=== PATIENT | female | born 1975 | race Caucasian/White ===

== ENCOUNTER 2018-03-12 10:22 | Day surgery (SDC) | payer OTHER, SELFPAY ==
[2018-03-04 07:47] VITALS: BMI 51.3
[2018-03-12 11:00] VITALS: BMI 52.3
[2018-03-12 11:17] VITALS: BP 128/87; PULSE 76; RESP 15; TEMP 36.6; O2SAT 95
[2018-03-12] MEDS: LACTATED RINGERS 1,000 ML 42 ML IV ×2 (11:19→13:55)
--- NOTE | 2018-03-12 12:42 | PM.HP.1 ---
History of Present Illness Date Patient Seen: 03/12/18 Time Patient Seen: 12:43 Chief complaint: left inquinal hernia repair [id number] Narrative: Stan is a very pleasant woman with a history of a left inguinal hernia that is painful and is enlarging. It has reached the point now where it is limiting her activities. It causes her nearly constant pain. She would very much like to have repaired. Patient History Medical History Back pain (Acute) Depression (Acute) Hypertension (Acute) IUD (intrauterine device) in place (Acute) Left inguinal hernia (Acute) Surgical History History of (Acute) History of carpal tunnel release (Acute) Family & Social History Family History: Reviewed 03/12/18 by Keli Bhatia MD Social History: household members spouse Tobacco & Substance use: Smoking Status Unknown if ever smoked Meds Home Medications Medication Instructions Recorded Confirmed Type citalopram 40 mg PO DAILY 03/04/18 03/12/18 History telmisartan [Micardis] 80 mg PO DAILY 03/04/18 03/12/18 History minocycline 100 mg PO BID 03/12/18 03/12/18 History Allergies Allergy/AdvReac Type Severity Reaction Status Date / Time No Known Drug Allergies Allergy Verified 03/12/18 10:59 Review of Systems Review of Systems All systems reviewed & are unremarkable except as noted in HPI and below Exam Vital Signs (past 8 hours): - 03/12/18 11:17 Temperature 97.8 F Pulse Rate 76 Respiratory Rate 15 Blood Pressure 128/87 H Pulse Oximetry 95 Oxygen Delivery Method Room Air Narrative Exam Narrative: A very pleasant lady in no obvious distress. She is clinically morbidly obese with a BMI of 52.3. HEENT: Normocephalic and atraumatic, pupils equal round reactive to light accommodation with anicteric sclera Lungs: Clear bilaterally Heart: Regular rate and rhythm Abdomen: Soft, tender to palpation left lower quadrant. With the patient in the supine position a hernia can be appreciated just to the left lateral side of her existing Pfannenstiel incision. It is difficult to determine if it is a true inguinal hernia or hernia related to the Pfannenstiel incision. It reduces with gentle pressure. Extremities: Warm and well perfused. Assessment & Plan (1) Morbid obesity: Current visit: Yes Status: Acute Plan: Assessment/Plan Narrative: Wonderful 43-year-old lady with a painful troublesome left inguinal hernia. We have discussed the risks and benefits of hernia repair the patient expressed a desire to have procedure.
[2018-03-12] MEDS: CEFAZOLIN 2 GM/100 ML FROZ.PIGGY IV (12:45)
--- NOTE | 2018-03-12 13:10 | SUR.OPER ---
Supine on padded OR bed, head on pillow, arms secured on padded arm boards at <90 degrees abduction, legs uncrossed, safety belt at thigh, tape over blanket over lower legs.
[2018-03-12] MEDS: CEFAZOLIN 1 GM VIAL IV (13:21)
[2018-03-12] MEDS: BUPIVACAINE 0.5% (PF) 30 ML VIAL INJ (13:52)
[2018-03-12] MEDS: LIDOCAINE 1% W/EPI INJ 20 ML INJ (13:53)
--- NOTE | 2018-03-12 14:00 | PM.OP.1 ---
Operative Date/Time/Diagnoses Date of procedure: 03/12/18 Time of procedure: 14:01 Pre-op diagnosis: Left Inguinal Hernia Post-op diagnosis: same Procedure & Clinicians Procedure: Left inguinal hernia repair Same procedure as scheduled: Yes Indications: Painful and troublesome left inguinal hernia Surgeon: Keli Bhatia Click Yes if Unassisted: Yes Anesthesia Type: General ([place]) and Local Operative Notes Findings: Moderate size indirect left inguinal hernia. The remainder of the floor is in good repair Closure Type: primary Specimen(s): none sent Implants & Drains: One large Pro Loop mesh plug and patch implant Estimated Blood Loss (mL): 10 Procedure in detail: AAfter obtaining informed consent, the patient was brought to the operating room and placed in the supine position on the operating table. Following successful induction of general endotracheal anesthesia, appropriate padding of all bony prominences, and placement of appropriate monitors, the abdomen and left groin were prepped and draped in a standard surgical fashion. A timeout was held per protocol. We began the procedure on the left side by creating an ilioinguinal nerve block. This was done by infiltrating a mixture of local anesthetics just medial to the anterior superior iliac spine on the left. We continued by creating an area in the left lower quadrant for an incision. A field block was created in this position. The incision was re-created and carried down through the skin and subcutaneous tissue to reveal the fascia of the external oblique aponeurosis. The fascia was opened in the direction of its fibers revealing the contents of the inguinal canal. It was easily identified and encircled with a Lars drain. Expiration of the inguinal canal revealed a moderate size direct, as well as an indirect, left internal hernia. We elected to divide the round ligament. This was done between clamps and it was tied with Vicryl suture. We elected to repair the defect with a large Pro Loop plug and patch implant. The plug was deployed into the internal inguinal ring and sewn medially to the transversalis fascia to help hold it in position. The patch was then sewn medially to the pubic tubercle and laterally the edges were tucked under the external oblique aponeurosis to provide a 2nd layer of stability. The wound was checked for hemostasis and irrigated copiously with warm saline solution. The external oblique aponeurosis was closed with a running locking Vicryl suture, Amita's fascia was closed, and Monocryl sutures were placed in the skin. All sponge, needle, and instrument counts were correct at the conclusion of the case. The patient was allowed to awaken from anesthesia without difficulty and taken to the post anesthesia care unit in good condition. Complications: none Condition: stable Disposition: PACU Plan for aftercare: 1. Discharge to home 2. Follow up with me in 2 weeks
[2018-03-12 14:04] VITALS: BP 124/70; PULSE 90; RESP 22; TEMP 37; O2SAT 90
[2018-03-12 14:10] VITALS: BP 127/75; PULSE 90; RESP 15; O2SAT 98
[2018-03-12 14:20] VITALS: BP 112/65; PULSE 80; RESP 12; O2SAT 99
[2018-03-12 14:25] VITALS: BP 113/72; PULSE 80; RESP 12; O2SAT 97
[2018-03-12 14:38] VITALS: BP 117/64; PULSE 76; RESP 15; TEMP 36.2; O2SAT 95
--- NOTE | 2018-03-12 15:22 | SUR.PHASEII ---
[id number] In wheelchair, Patient and spouse deny any further questions or concerns. No drainage at surgical site prior to IV being DC'd. Ice bag with patient.
== END 2018-03-12 15:10 | disposition home or self-care (01) ==
PROVIDERS: PCP Registered Nurse Diabetes Educator; Visit Provider Surgery
PROC: (CPT 49505; principal; 2018-03-12 11:15)
DX: K40.90 Unilateral inguinal hernia, without obstruction or gangrene, not specified as recurrent (principal); I10 Essential (primary) hypertension
CPT/HCPCS: 49505; C1781; J0690; J2405; J2704; J3010

== ENCOUNTER 2019-06-02 18:34 | Emergency (ER) | payer OTHER, SELFPAY ==
[2019-06-02 19:21] VITALS: BP 148/73; PULSE 96; RESP 18; TEMP 37.3; O2SAT 98
--- NOTE | 2019-06-02 19:22 | DI.RAD.S_ITS ---
PROCEDURE: XR WRIST LT MIN 3V INDICATIONS: fall, elbow and wrist pain TECHNIQUE: 3 views of the wrist were acquired. COMPARISON: None. FINDINGS: Bones: No fractures or dislocations. No suspicious bony lesions. Soft tissues: No suspicious soft tissue calcifications. IMPRESSION: 1. No fracture or dislocation. A Dictated by: Sourav Lilly M.D. on 06/02/2019 at 20:29 Approved by: Sourav Lilly M.D. on 06/02/2019 at 20:30
--- NOTE | 2019-06-02 19:22 | DI.RAD.S_ITS ---
PROCEDURE: XR ELBOW LT MIN 3V INDICATIONS: fall, elbow and wrist pain TECHNIQUE: 3 views of the elbow were acquired. COMPARISON: [facility], [place], XR WRIST LT MIN 3V, 06/02/2019, 19:33. FINDINGS: Bones: There is a minimally impacted fracture of the radial neck. No dislocations. Soft tissues: There is a small elbow joint effusion. No suspicious soft tissue calcifications. IMPRESSION: 1. Minimally impacted radial neck fracture. Dictated by: Sourav Lilly M.D. on 06/02/2019 at 20:26 Approved by: Sourav Lilly M.D. on 06/02/2019 at 20:29
--- NOTE | 2019-06-02 20:46 | ED.UPPEXIN ---
HPI - Extremity Injury (Upper) General Chief Complaint: Extremity Injury, Upper Stated Complaint: LEFT ARM INJURY FALL Time Seen by Provider: 06/02/19 20:32 Source: patient Mode of arrival: Ambulatory Limitations: no limitations History of Present Illness HPI narrative: The patient arrived home from work about 3 hours ago. She was taking her dogs into the house, she tripped over a door stop and fell into her laundry room. She landed on her left side. There was no head or neck injury. She has no chest pain or dyspnea. She has left humerus, left elbow and left wrist pain. She has mild left leg pain. She is primarily pain with motion of the elbow and wrist, but no pain with motion of the leg. She is right-hand dominant. There are no contusions, abrasions or deformity. She has no other injuries, no other complaints. Related Data Home Medications Medication Instructions Recorded Confirmed citalopram 40 mg PO DAILY 03/04/18 04/17/18 telmisartan [Micardis] 80 mg PO DAILY 03/04/18 04/17/18 minocycline 100 mg PO BID 03/12/18 03/25/18 Previous Rx's Medication Instructions Recorded ondansetron [Zofran ODT] 4 mg PO QID PRN #20 tab MDD 4 03/12/18 oxycodone-acetaminophen 5 mg-325 1 tab PO Q6H PRN #30 tab MDD 4 03/17/18 mg tablet fluconazole 200 mg tablet 200 mg PO Q24H #7 tab MDD 1 04/03/18 tramadol 50 mg PO Q6-8H PRN #20 tab 06/02/19 Allergies Allergy/AdvReac Type Severity Reaction Status Date / Time No Known Drug Allergies Allergy Verified 03/12/18 10:59 Review of Systems Constitutional Constitutional: Denies chills, Denies lethargy and Denies weakness ENT Ears, Nose, Mouth, and Throat: Denies neck pain Comments: No trauma. Cardiovascular Cardiovascular: Denies chest pain and Denies dyspnea Respiratory Respiratory: Denies cough and Denies dyspnea Gastrointestinal Gastrointestinal: Denies abdominal pain and Denies nausea Musculoskeletal Musculoskeletal: Denies back pain, Denies neck pain and Denies numbness Comments: Left arm and left leg pain. Integumentary/Breasts Skin/Breast: Denies pruritus, Denies erythema, Denies rash and Denies wounds Neurologic Neurologic: Denies confusion, Denies numbness and Denies weakness Psychiatric Psychiatric: Denies anxiety, Denies confusion and Denies depression [facility] Medical History Back pain (Acute) Depression (Acute) Hypertension (Acute) IUD (intrauterine device) in place (Acute) Left inguinal hernia (Acute) Surgical History History of (Acute) History of carpal tunnel release (Acute) Social History household members: spouse Smoking Status: Never smoker Social History household members: spouse Smoking Status: Never smoker Exam Initial Vital Signs Initial Vital Signs: Vital Signs Temperature 99.2 F 06/02/19 19:21 Pulse Rate 96 H 06/02/19 19:21 Respiratory Rate 18 06/02/19 19:21 Blood Pressure 148/73 H 06/02/19 19:21 Pulse Oximetry 98 06/02/19 19:21 Const General: cooperative and well developed Nutritional Appearance: well nourished Orientation: alert, awake, oriented x3 and not confused HENNC Head: normal to inspection, normocephalic and atraumatic Neck Neck: supple and No tender Chest Chest: normal inspection of the chest and No crepitus Resp Effort & Inspection: normal respiratory effort and able to speak in complete sentences Auscultation: clear to auscultation bilaterally, no rales, no rhonchi and no wheezes Cardio Rate: regular rate Rhythm: regular rhythm Heart Sounds: no click, no gallops, no murmurs and no rubs Pulses: normal peripheral pulses Back/Spine/Pelvis Back: normal to inspection and No back tenderness Skin General: no rashes or lesions noted Neuro General: alert, oriented x3, gait normal and no focal motor deficits Speech: speech normal Extrem Other: Left shoulder and left clavicle nontender. Humerus is nontender. She has tenderness to left lateral elbow with decreased flexion and decreased pronation. There is no palpable deformity. Her forearm is nontender. She has dorsal tenderness of the left wrist, there is no snuffbox tenderness. There is no deformity. The left radial pulse is intact. The left hand is normal, atraumatic. There is normal flexion extension all digits. The left hand is neurovascularly intact. The left leg shows full range of motion without deformity or tenderness. Psych Appearance: well kempt Mental Status: mental status grossly normal Attitude: cooperative Thought Content: normal and suicidality Judgment: judgment good Procedures Orthopedic Splinting/Casting Injury #1: Side: left Upper Extremity Injury Location: elbow Upper Extremity Immobilizer: sling/shoulder immobilizer Placed by: Nursing Additional Comments: The left hand is neurovascularly intact after being placed in the sling. Course Orders Ordered: ED Orders 06/02/19 19:22 XR elbow LT min 3V Stat XR wrist LT min 3V Stat Discontinued Medications Tramadol HCl (Ultram 50mg Prepack) 1 bottle MISC SEEINSTR ONE Stop: 06/02/19 20:45 Last Admin: 06/02/19 20:55 Dose: 1 bottle Documented by: CLAUDETTE Vital Signs Vital signs: Vital Signs - 8 hr 06/02/19 19:21 Temperature 99.2 F Pulse Rate 96 H Respiratory Rate 18 Blood Pressure 148/73 H Pulse Oximetry 98 MDM - Extremity Injury (Upper) Imaging Data Left elbow x-ray:: Radiologist's impression: [address] [address] XRay Report Signed Patient: Berta Mcfadden#: [id number] : 1975Acct:[id number] Age/Sex: 44 / FDate of Service: 06/02/19 Loc: ED Accession Number: [id number] Procedure: XR elbow LT min 3V Ordering Provider: Floyd Mendoza MD PROCEDURE: XR ELBOW LT MIN 3V INDICATIONS: fall, elbow and wrist pain TECHNIQUE: 3 views of the elbow were acquired. COMPARISON: [facility], , XR WRIST LT MIN 3V, 06/02/2019, 19:33. FINDINGS: Bones: There is a minimally impacted fracture of the radial neck. No dislocations. Soft tissues: There is a small elbow joint effusion. No suspicious soft tissue calcifications. IMPRESSION: 1. Minimally impacted radial neck fracture. Dictated by: Sourav Lilly M.D. on 06/02/2019 at 20:26 Approved by: Sourav Lilly M.D. on 06/02/2019 at 20:29 Left wrist x-ray:: Radiologist's impression: [address] [address] XRay Report Signed Patient: Berta Mcfadden#: [id number] : 1975Acct:[id number] Age/Sex: 44 / FDate of Service: 06/02/19 Loc: ED Accession Number: [id number] Procedure: XR wrist LT min 3V Ordering Provider: Floyd Mendoza MD PROCEDURE: XR WRIST LT MIN 3V INDICATIONS: fall, elbow and wrist pain TECHNIQUE: 3 views of the wrist were acquired. COMPARISON: None. FINDINGS: Bones: No fractures or dislocations. No suspicious bony lesions. Soft tissues: No suspicious soft tissue calcifications. IMPRESSION: 1. No fracture or dislocation. A Dictated by: Sourav Lilly M.D. on 06/02/2019 at 20:29 Approved by: Sourav Lilly M.D. on 06/02/2019 at 20:30 Discharge Plan Departure Patient Disposition: Home Clinical Impression: Closed fracture of head of left radius Qualifiers: Encounter type: initial encounter Fracture alignment: nondisplaced Qualified Code(s): S52.125A - Nondisplaced fracture of head of left radius, initial encounter for closed fracture Instructions: DI for Distal Radius Fracture Activity Restrictions/Additional Instructions: Take Tylenol or Advil as needed for pain. Tramadol every 6 hours as needed added pain control. Use a sling as needed. You may wean from the sling slowly, as tolerated. Contact your primary care doctor at the [facility], you will need follow-up with Orthopedics. Return here as needed. Prescriptions: New tramadol 50 mg tablet 50 mg PO Q6-8H PRN (Reason: pain) Qty: 20 RF: 0 No Action oxycodone-acetaminophen 5-325 mg tablet 1 tab PO Q6H MDD 4 PRN (Reason: pain) Qty: 30 RF: 0 fluconazole [Diflucan] 200 mg tablet 200 mg PO Q24H MDD 1 Qty: 7 RF: 0 citalopram 40 mg Tablet 40 mg PO DAILY RF: 0 telmisartan [Micardis] 80 mg Tablet 80 mg PO DAILY RF: 0 minocycline 100 mg Capsule 100 mg PO BID RF: 0 ondansetron [Zofran ODT] 4 mg tablet,disintegrating 4 mg PO QID MDD 4 PRN (Reason: nausea and vomiting) Qty: 20 RF: 0 Referrals: Esau Small CNP [Primary Care Provider] -
[2019-06-02] MEDS: TRAMADOL 50 MG PREPACK 1 BOTTLE MISC (20:55)
[2019-06-02 21:11] VITALS: BP 130/85; PULSE 77; RESP 20
== END 2019-06-02 21:11 | disposition home or self-care (01) ==
PROVIDERS: Emergency Provider Emergency Medicine; PCP Registered Nurse Diabetes Educator
DX: S52.125A Nondisplaced fracture of head of left radius, initial encounter for closed fracture (principal); M25.522 Pain in left elbow; M25.532 Pain in left wrist; W19.XXXA Unspecified fall, initial encounter
CPT/HCPCS: 73080; 73110; 99282; 99283

== ENCOUNTER → 2021-09-03 16:30 | Outpatient (CLI) | payer OTHER, SELFPAY | PROVIDERS: PCP Registered Nurse Diabetes Educator; Referring Provider Physician Assistant; Visit Provider Physician Assistant | DX: N34.3 Urethral syndrome, unspecified (principal) | CPT/HCPCS: 87086 ==

== ENCOUNTER 2022-11-21 13:29 | Emergency (ER) | payer OTHER, SELFPAY ==
[2022-11-21 13:49] VITALS: BP 117/77; PULSE 80; RESP 22; TEMP 37; O2SAT 98; BMI 39.6
--- NOTE | 2022-11-21 13:59 | DI.RAD.S_ITS ---
PROCEDURE: XR CHEST 2V INDICATIONS: cough x 3 days, SHOB TECHNIQUE: 2 views of the chest were acquired. COMPARISON: None. FINDINGS: Surgical changes and devices: None. Lungs and pleura: Lungs are clear. No pleural effusions or pneumothorax. Mediastinum: Mediastinal contours are normal. Heart size is normal. Bones and chest wall: No suspicious bony abnormalities. Soft tissues appear unremarkable. IMPRESSION: No acute cardiopulmonary pathology. Dictated by: Hector Niño M.D. on 11/21/2022 at 13:22 Approved by: Hector Niño M.D. on 11/21/2022 at 13:23
--- NOTE | 2022-11-21 14:02 | ED.URI ---
HPI - URI/Sore Throat <Gaby yN PA-C - Last Filed: 11/21/22 16:35> General Chief Complaint: Upper Respiratory Symptoms Stated Complaint: sent by [facility] DC for breathing treatments Time Seen by Provider: 11/21/22 13:57 History of Present Illness HPI Narrative: 47-year-old female with history of obesity, presents with concern for persistent cough for 12 days. She states she was seen at [facility] today they tested her for COVID and flu but do not have results yet they sent her here for breathing treatment and further evaluation. 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 She states that she has not really been feeling any worse she just seems like she is not getting better she said in the beginning of her course she did have some fevers and chills but that was 12 days ago most of her symptoms has resolved except for the persistent bothersome cough which is sometimes so bad that it makes her vomit. She has tried Mucinex and Tessalon as well as taken a course of amoxicillin and a steroid course. She feels none of these have really helped. She states she feels congested up high in her chest and moving around and doing activities tends to make her cough a lot. Related Data Home Medications Medication Instructions Recorded Confirmed citalopram 40 mg tablet 40 mg PO DAILY 03/04/18 09/03/21 telmisartan 80 mg tablet (Micardis) 80 mg PO DAILY 03/04/18 09/03/21 minocycline 100 mg capsule 100 mg PO BID 03/12/18 09/03/21 Previous Rx's Medication Instructions Recorded ondansetron 4 mg disintegrating 4 mg PO QID PRN nausea and 03/12/18 tablet (Zofran ODT) vomiting #20 tabs oxycodone-acetaminophen 5 mg-325 1 tab PO Q6H PRN pain #30 tabs 03/17/18 mg tablet fluconazole 200 mg tablet 200 mg PO Q24H candidiasis #7 tabs 04/03/18 (Diflucan) tramadol 50 mg tablet 50 mg PO Q6-8H PRN pain #20 tabs 06/02/19 meclizine 12.5 mg tablet See Rx Instructions PO TID PRN 09/03/21 dizziness #10 tabs albuterol sulfate 90 mcg/actuation 2 puff inhalation Q6H PRN 11/21/22 aerosol inhaler shortness of breath or wheezing 2 weeks #6.7 grams benzonatate 100 mg capsule 100 mg PO TID PRN cough #21 caps 11/21/22 codeine 7.5 mg-guaifenesin 225 5 ml PO Q6H PRN cough and 11/21/22 mg/5 mL oral liquid congestion 7 days #473 mL Allergies Allergy/AdvReac Type Severity Reaction Status Date / Time No Known Drug Allergies Allergy Verified 11/21/22 13:55 Patient History <Gaby Ny PA-C - Last Filed: 11/21/22 16:35> Medical History (Updated 11/21/22 @ 16:25 by Gaby Ny PA-C) Back pain Depression Hypertension IUD (intrauterine device) in place Left inguinal hernia Surgical History History of History of carpal tunnel release Social History household members: spouse Smoking Status: Never smoker Smoking Status: Never smoker alcohol intake frequency: 0-2 drinks per day Substance Use Type: does not use Exam <Gaby Ny PA-C - Last Filed: 11/21/22 16:35> Narrative Exam Narrative: GENERAL: 47 year old patient appears stated age. Well-developed patient, in mild distress. HEAD: Atraumatic. Normocephalic. EYES: Pupils equal round and reactive. Extraocular motions intact. No scleral icterus. No injection or drainage. ENT: Nose without bleeding, purulent drainage. Airway patent. NECK: Trachea midline. Non tender CARDIOVASCULAR: Regular rate and rhythm without murmurs, gallops, or rubs. RESPIRATORY: Bilateral expiratory wheezing all joe, Breath sounds equal bilaterally. No rales, or rhonchi. GASTROINTESTINAL: Abdomen soft, non-tender, nondistended. EXTREMITIES: No edema or joint tenderness. BACK: Nontender without deformity or crepitance. No flank tenderness. NEURO: AOx3. SKIN: No rash or erythema of visible areas Initial Vital Signs Initial Vital Signs: Vital Signs Temperature 98.6 F 11/21/22 13:49 Pulse Rate 80 11/21/22 13:49 Respiratory Rate 22 11/21/22 13:49 Blood Pressure 117/77 11/21/22 13:49 Pulse Oximetry 98 11/21/22 13:49 Oxygen Delivery Method Room Air 11/21/22 13:49 <Nabil Medrano DO - Last Filed: 11/21/22 17:34> Initial Vital Signs Initial Vital Signs: Vital Signs Temperature 98.6 F 11/21/22 13:49 Pulse Rate 80 11/21/22 13:49 Respiratory Rate 22 11/21/22 13:49 Blood Pressure 117/77 11/21/22 13:49 Pulse Oximetry 98 11/21/22 13:49 Oxygen Delivery Method Room Air 11/21/22 13:49 Course <Gaby Ny PA-C - Last Filed: 11/21/22 16:35> Course Course Narrative: RT provided the patient with a DuoNeb treatment and noted she had significant improvement in her wheezing and patient felt better. Orders Ordered: ED Orders 11/21/22 13:59 CXR [XR chest 2V] Stat RT Consult Eval and Treat NOW 11/21/22 15:10 Respiratory Panel (Film Array) Stat Discontinued Medications Albuterol (Albuterol 2.5 Mg/3 Ml Neb (Adult)) 2.5 mg INH NOW ONE Stop: 11/21/22 15:21 Albuterol (Albuterol 2.5 Mg/3 Ml Neb (Adult)) 2.5 mg INH NOW ONE Stop: 11/21/22 15:24 Last Admin: 11/21/22 15:31 Dose: 2.5 mg Documented By: STEVAN Albuterol/Ipratropium (Albuterol/Ipratropium 3 Ml Ampul) 3 ml INH NOW ONE Stop: 11/21/22 14:00 Ipratropium Alexander (Ipratropium 0.5 Mg/2.5 Ml Neb) 0.5 mg INH NOW ONE Stop: 11/21/22 15:21 Ipratropium Alexander (Ipratropium 0.5 Mg/2.5 Ml Neb) 0.5 mg INH NOW ONE Stop: 11/21/22 15:24 Last Admin: 11/21/22 15:30 Dose: 0.5 mg Documented By: STEVAN Vital Signs Vital signs: Vital Signs - 8 hr 11/21/22 13:49 11/21/22 16:37 Temperature 98.6 F Pulse Rate 80 85 Respiratory Rate 22 18 Blood Pressure 117/77 120/75 Pulse Oximetry 98 98 Oxygen Delivery Method Room Air Room Air <Nabil Medrano DO - Last Filed: 11/21/22 17:34> Orders Ordered: ED Orders 11/21/22 13:59 CXR [XR chest 2V] Stat RT Consult Eval and Treat NOW 11/21/22 15:10 Respiratory Panel (Film Array) Stat Discontinued Medications Albuterol (Albuterol 2.5 Mg/3 Ml Neb (Adult)) 2.5 mg INH NOW ONE Stop: 11/21/22 15:21 Albuterol (Albuterol 2.5 Mg/3 Ml Neb (Adult)) 2.5 mg INH NOW ONE Stop: 11/21/22 15:24 Last Admin: 11/21/22 15:31 Dose: 2.5 mg Documented By: STEVAN Albuterol/Ipratropium (Albuterol/Ipratropium 3 Ml Ampul) 3 ml INH NOW ONE Stop: 11/21/22 14:00 Ipratropium Alexander (Ipratropium 0.5 Mg/2.5 Ml Neb) 0.5 mg INH NOW ONE Stop: 11/21/22 15:21 Ipratropium Alexander (Ipratropium 0.5 Mg/2.5 Ml Neb) 0.5 mg INH NOW ONE Stop: 11/21/22 15:24 Last Admin: 11/21/22 15:30 Dose: 0.5 mg Documented By: STEVAN Vital Signs Vital signs: Vital Signs - 8 hr 11/21/22 13:49 11/21/22 16:37 Temperature 98.6 F Pulse Rate 80 85 Respiratory Rate 22 18 Blood Pressure 117/77 120/75 Pulse Oximetry 98 98 Oxygen Delivery Method Room Air Room Air MDM - URI/Sore Throat <Gaby Ny PA-C - Last Filed: 11/21/22 16:35> Differential Diagnosis Differential diagnosis: Likely upper respiratory infection, viral infection, bronchitis and other (reactive airway, persistent cough) Medical Records Attestation: I reviewed the patient's medical records. Lab Data Labs: Lab Results 11/21/22 Range/Units 15:10 Chlamy pneumoniae PCR Not detected (Not Detect) Adenovirus (PCR) Not detected (Not Detect) B. pertussis DNA (PCR) Not detected (Not Detecte) B.parapertussis DNA PCR Not detected (Not Detecte) Coronavirus OC43 (PCR) Not detected (Not Detect) Coronavirus HKU1 (PCR) Not detected (Not Detect) Coronavirus 229E (PCR) Not detected (Not Detect) SARS-CoV-2 (PCR) Not detected (Not Detecte) Coronavirus NL63 (PCR) Not detected (Not Detect) Human Metapneumovir PCR Not detected (Not Detect) Influenza Type A (PCR) Not detected (Not Detect) Influenza Type B (PCR) Not detected (Not Detect) M. pneumoniae (PCR) Not detected (Not Detect) Parainfluenza 1 (PCR) Not detected (Not Detect) Parainfluenza 2 (PCR) Not detected (Not Detect) Parainfluenza 3 (PCR) Not detected (Not Detect) Parainfluenza 4 (PCR) Not detected (Not Detect) RSV (PCR) Not detected (Not Detect) Entero/Rhino (PCR) Not detected (Not Detect) Imaging Data Chest x-ray: My Impression: I agree with radiologist's interpretation Radiologist's Impression: [address] [address] XRay Report Signed Patient: Berta Mcfadden MR#: [id number] : 1975 Acct:[id number] Age/Sex: 47 / F Date of Service: 11/21/22 Loc: ED Accession Number: [id number] ?? Procedure: XR chest 2V Ordering Provider: Gaby Ny P.A-C PROCEDURE:? XR CHEST 2V ? INDICATIONS:? cough x 3 days, SHOB ? TECHNIQUE:? 2 views of the chest were acquired.? ? COMPARISON:? None. ? FINDINGS:? ? Surgical changes and devices:? None.? ? Lungs and pleura:? Lungs are clear.? No pleural effusions or pneumothorax.? ? Mediastinum:? Mediastinal contours are normal.? Heart size is normal.? ? Bones and chest wall:? No suspicious bony abnormalities.? Soft tissues appear unremarkable.? ? IMPRESSION:? No acute cardiopulmonary pathology. ? ? Dictated by: Hector Niño M.D. on 11/21/2022 at 13:22 ? ? Approved by: Hector Niño M.D. on 11/21/2022 at 13:23?? [facility] Narrative Medical decision making narrative: 47-year-old female presented from [facility] with concern for possibly needing a breathing treatment and 12 days of persistent cough symptoms, nontoxic appearing with unremarkable vitals, she does have bilateral expiratory wheezing and chest x-ray as well as duo neb treatment as well as respiratory viral panel are pursued today, she comes back negative on the viral panel and the chest x-ray is not suggestive of pneumonia, patient has no complaints or history suggestive of sepsis she actually has taken a course of antibiotics and steroids though suspect that this has been a viral illness originally contributing to her symptoms. She did have significant improvement with the DuoNeb with resolution of her wheezing in all joe. She is prescribed albuterol inhaler after receiving teaching treatment on using a spacer from RT, she is also prescribed additional benzonatate which he is out of as well as guaifenesin with codeine as needed for her cough. Return precautions provided, follow-up plan discussed, all questions answered. <Nabil Medrano, DO - Last Filed: 11/21/22 17:34> Lab Data Labs: Lab Results 11/21/22 Range/Units 15:10 Chlamy pneumoniae PCR Not detected (Not Detect) Adenovirus (PCR) Not detected (Not Detect) B. pertussis DNA (PCR) Not detected (Not Detecte) B.parapertussis DNA PCR Not detected (Not Detecte) Coronavirus OC43 (PCR) Not detected (Not Detect) Coronavirus HKU1 (PCR) Not detected (Not Detect) Coronavirus 229E (PCR) Not detected (Not Detect) SARS-CoV-2 (PCR) Not detected (Not Detecte) Coronavirus NL63 (PCR) Not detected (Not Detect) Human Metapneumovir PCR Not detected (Not Detect) Influenza Type A (PCR) Not detected (Not Detect) Influenza Type B (PCR) Not detected (Not Detect) M. pneumoniae (PCR) Not detected (Not Detect) Parainfluenza 1 (PCR) Not detected (Not Detect) Parainfluenza 2 (PCR) Not detected (Not Detect) Parainfluenza 3 (PCR) Not detected (Not Detect) Parainfluenza 4 (PCR) Not detected (Not Detect) RSV (PCR) Not detected (Not Detect) Entero/Rhino (PCR) Not detected (Not Detect) Discharge Plan Departure Patient Disposition: Home Clinical Impression: Cough, Expiratory wheezing Activity Restrictions/Additional Instructions: Thank you for letting us be part of your care today in the emergency department today. We performed a chest x-ray which looked okay, did not show evidence of a pneumonia, we also did a viral panel to evaluate for possible viral causes of your cough and wheezing, however this returned negative for any of the common viruses we test for. In addition we did give you a breathing treatment in the emergency department to help with your wheezing symptoms which seemed to improve things quite a bit for you, the respiratory therapist work with you on teaching how to use an inhaler with a spacer and I have prescribed an albuterol inhaler for you which you can use as needed as prescribed. I am also prescribing some cough medicine for you in addition. There is no evidence of an emergent or life threatening illness at this time, but follow up with your doctor in 1-2 days is recommended nonetheless to continue to rule out serious underlying causes of your symptoms. Please call the office for an appointment. Please return to the Emergency Department for any worsening or persistent symptoms. Please take medications as directed. Prescriptions: New albuterol sulfate 90 mcg/actuation HFA aerosol inhaler 2 puff inhalation Q6H PRN (Reason: shortness of breath or wheezing) 14 Days Qty: 6.7 0RF benzonatate 100 mg capsule 100 mg PO TID PRN (Reason: cough) Qty: 21 1RF codeine-guaifenesin 7.5-225 mg/5 mL liquid 5 ml PO Q6H PRN (Reason: cough and congestion) 7 Days Qty: 473 0RF No Action meclizine 12.5 mg tablet See Rx Instructions PO TID PRN (Reason: dizziness) Qty: 10 0RF Rx Instructions: 1-2 tablets PO three times a day PRN; oxycodone-acetaminophen 5-325 mg tablet 1 tab PO Q6H MDD 4 PRN (Reason: pain) Qty: 30 0RF fluconazole [Diflucan] 200 mg tablet 200 mg PO Q24H MDD 1 Qty: 7 0RF tramadol 50 mg tablet 50 mg PO Q6-8H PRN (Reason: pain) Qty: 20 0RF citalopram 40 mg Tablet 40 mg PO DAILY telmisartan [Micardis] 80 mg Tablet 80 mg PO DAILY minocycline 100 mg Capsule 100 mg PO BID ondansetron [Zofran ODT] 4 mg tablet,disintegrating 4 mg PO QID MDD 4 PRN (Reason: nausea and vomiting) Qty: 20 0RF Referrals: Provider,Candi CALLES [Primary Care Provider] - Stand Alone Forms: Patient Portal/API <Nabil Medrano, DO - Last Filed: 11/21/22 17:34> Cosign ED Attending Cosignature Attestation: Dr Medrano Co-Sign Statement: I was available for consultation during this patient's emergency department visit. This chart is signed by myself for administrative purposes only. I did not have direct contact with this patient during this visit. They were seen independently by the APC.
[2022-11-21] MEDS: IPRATROPIUM 0.5 MG/2.5 ML NEB INH (15:30)
[2022-11-21] MEDS: ALBUTEROL 2.5 MG/3 ML NEB (ADULT) INH (15:31)
[2022-11-21 16:08] LABS: Adenovirus Not Detected (Not Detect); B. parapertussis Not Detected (Not Detecte); Bordetella pertussis Not Detected (Not Detecte); Chlamydophila pneumoniae Not Detected (Not Detect); Coronavirus 229E Not Detected (Not Detect); Coronavirus HKU1 Not Detected (Not Detect); Coronavirus NL 63 Not Detected (Not Detect); Coronavirus OC43 Not Detected (Not Detect); Human Metapneumovirus Not Detected (Not Detect); Human Rhinovirus/Enterovirus Not Detected (Not Detect); Influenza A Not Detected (Not Detect); Influenza B Not Detected (Not Detect); Mycoplasma pneumoniae Not Detected (Not Detect); Parainfluenza Virus 1 Not Detected (Not Detect); Parainfluenza Virus 2 Not Detected (Not Detect); Parainfluenza Virus 3 Not Detected (Not Detect); Parainfluenza Virus 4 Not Detected (Not Detect); Respiratory Syncytial Virus Not Detected (Not Detect); SARS- CoV-2 Not Detected (Not Detecte)
[2022-11-21 16:37] VITALS: BP 120/75; PULSE 85; RESP 18; O2SAT 98
== END 2022-11-21 16:37 | disposition home or self-care (01) ==
PROVIDERS: Emergency Provider Student in an Organized Health Care Education/Training Program
DX: R05.9 Cough, unspecified (principal); R06.2 Wheezing
CPT/HCPCS: 71046; 87633; 99283; J7613

== ENCOUNTER 2023-06-04 14:04 | Day surgery (SDC) | payer OTHER, SELFPAY ==
--- NOTE | 2023-06-04 | PATH_ITS ---
[facility] Accession Number: [id number] No. of containers..02 Tissue . 01 Material submitted: . PART A: gastrointestinal site - GASTRIC BIOPSY PART B: esophagus, E-G Junction - GE JUNCTION . 01 Diagnosis: A. Gastric Biopsy: Gastric body-type mucosa with mild chronic gastritis. Negative for Helicobacter organisms by immunohistochemistry. Negative for intestinal metaplasia. Negative for dysplasia or malignancy. . B. Gastroesophageal Junction: Squamocolumnar junctional mucosa with specialized intestinal metaplasia, consistent with Gomez's esophagus. Negative for dysplasia and malignancy. . MRV 06/10/2023 1639 Local . 01 Electronically signed: . Tatiana Selby MD, Pathologist NPI- [id number] . 01 Gross description: . Part A: GASTRIC BIOPSY: Received in formalin is 2 fragment(s) of walker, soft tissue measuring 0.4 x 0.4 x 0.1 cm to 0.4 x 0.3 x 0.2 cm submitted entirely in 1 cassette(s) Part B: GE JUNCTION: Received in formalin is 2 fragment(s) of walker, soft tissue measuring 0.5 x 0.2 x 0.1 cm to 0.4 x 0.2 x 0.1 cm submitted entirely in 1 cassette(s) /AAY 06/06/2023 0245 Local . 01 Microscopic: . A. An immunohistochemical stain was performed to evaluate for Helicobacter organisms and is negative. The control stain showed appropriate reactivity. . * This test was developed and its performance characteristics determined by [facility]. It has not been cleared or approved by the U.S. Food and Drug Administration. The FDA has determined that such clearance or approval is not necessary. This test is used for clinical purposes. It should not be regarded as investigational or for research. . 01 Pathologist provided ICD-10: K22.70, K29.71 . 01 CPT . 025140, 722847, I64362 Specimen Comment: A courtesy copy of this report has been sent to [phone] Performed at: 01 [facility] [address] [place] [id number] MD Sourav Ratliff MD Phone: [phone]
[2023-06-04 14:29] VITALS: BMI 41.5
[2023-06-04 14:54] VITALS: BP 127/84; PULSE 84; RESP 17; TEMP 36.4; O2SAT 99
[2023-06-04] MEDS: LACTATED RINGERS 1,000 ML 150 ML IV (14:59)
--- NOTE | 2023-06-04 15:11 | PM.PREOP ---
Pre-operative Note Interval Note History & Physical reviewed/Exam performed by Physician: Yes Changes to H&P: No
--- NOTE | 2023-06-04 15:38 | PM.OP.EC ---
Operative Date/Time/Diagnoses Date of procedure: 06/04/23 Time of procedure: 15:38 Pre-op diagnosis: History of sleeve gastrectomy Uncontrolled GERD Post-op diagnosis: other (Gastritis) Procedure & Clinicians Study performed: Esophagoduodenoscopy, aborted colonoscopy. Same procedure as scheduled: Yes Indications: 48-year-old woman who underwent a sleeve gastrectomy several years ago here for uncontrollable GERD and screening colonoscopy. Surgeon: Miles Atkinson Procedure Notes Procedure in detail: The history and physical was performed/updated and the patient is ASA class is 3. The procedure was discussed in detail with the patient. Potential risks complications including infection, bleeding, missed diagnosis, perforation, need for surgery, and were explained. Their questions were answered and informed consent was obtained. Patient placed in left lateral decubitus position. Time out was performed. Procedural sedation was administered by Anesthesia. A bite block was placed. the scope was inserted into the mouth and advanced through the esophagus and into the stomach. Stomach was empty of contents upon entry, no bile or ulcer. Well healed staple line was observed. The mucosa of the stomach was friable biopsies were performed with forceps.. The pylorus was intubated and the duodenum was normal to the 2nd portion. The scope was retroflexed within the stomach no hiatal hernia. The scope was withdrawn into the esophagus the Z line was seen at 35 cm from the incisions. There was no Gomez's esophagitis, esophageal masses or strictures. Biopsies of the GE junction were performed with forceps. Stomach was desufflated and scope removed. Examination began with a thorough inspection of the perianal area there was no evidence of fissures, fistulae, external hemorrhoids or cutaneous malignancy. The colonoscopy scope was then placed into the anal canal and was advanced forward. The quality of the prep was inadequate for safe and accurate performance of this exam. The procedure was aborted. The patient tolerated the procedure well. They will be discharged once criteria are met Specimen(s): other (Gastric, GE junction) Impression: Gastritis Post-procedure Plan for aftercare: Increase PPI to pantoprazole 40 mg twice daily. Please follow-up with consultation to bariatric surgeon for consideration of revision sleeve gastrectomy to a Kiesha-en-Y Colonoscopy will need to be performed with an alternative prep Disposition: same day surgery
[2023-06-04 15:41] VITALS: BP 118/76; PULSE 75; RESP 16; TEMP 37.2; O2SAT 100
[2023-06-04 15:45] VITALS: BP 135/79; PULSE 74; RESP 18; O2SAT 100
[2023-06-04 15:51] VITALS: BP 146/79; PULSE 75; RESP 16; O2SAT 100
[2023-06-04 15:59] VITALS: BP 133/58; PULSE 75; RESP 18; O2SAT 100
== END 2023-06-04 16:15 | disposition home or self-care (01) ==
PROVIDERS: Referring Provider Surgery; Visit Provider Surgery
PROC: 0DJ08ZZ Inspection of Upper Intestinal Tract, Via Natural or Artificial Opening Endoscopic (ICD-10-PCS; CPT 43235; principal; 2023-06-04 15:15)
DX: K21.9 Gastro-esophageal reflux disease without esophagitis (principal); Z98.890 Other specified postprocedural states; Z53.09 Procedure and treatment not carried out because of other contraindication; E66.9 Obesity, unspecified; Z68.41 Body mass index [BMI] 40.0-44.9, adult; K29.50 Unspecified chronic gastritis without bleeding; K22.70 Barrett's esophagus without dysplasia
CPT/HCPCS: 45378; 43239

== ENCOUNTER 2023-06-22 11:58 | Emergency (ER) | payer OTHER, SELFPAY ==
[2023-06-22 12:16] VITALS: BP 146/99; PULSE 74; RESP 16; TEMP 37; O2SAT 98; BMI 41.5
--- NOTE | 2023-06-22 12:24 | DI.RAD.S_ITS ---
PROCEDURE: XR CHEST 2V INDICATIONS: h/o pne, not feeling better TECHNIQUE: 2 views of the chest were acquired. COMPARISON: [facility], CR, XR CHEST 2V, 11/21/2022, 14:09. FINDINGS: Surgical changes and devices: None. Lungs and pleura: Lungs are clear. No pleural effusions or pneumothorax. Mediastinum: Mediastinal contours are normal. Heart size is normal. Bones and chest wall: No suspicious bony abnormalities. Soft tissues appear unremarkable. IMPRESSION: Unremarkable two view chest x-ray Approved by: Lazaro Singletary M.D. on 06/22/2023 at 12:20
--- NOTE | 2023-06-22 13:09 | ED.EXTPRO ---
HPI - Extremity Problem <SOHAN Mayes - Last Filed: 06/22/23 13:44> General Chief complaint: Extremity Problem,Nontraumatic Stated complaint: SHARP LOWER BACK PAIN, COUGH/PNEUMONIA Time Seen by Provider: 06/22/23 12:39 Source: patient Mode of arrival: Ambulatory History of Present Illness HPI Narrative: 48-year-old female, never smoker with history of bronchitis, presents to the emergency department with complaints cough and congestion and right leg pain. Patient works at a [employer], and is on her feet Saturday through Saturday at least 8 hours a day. Patient states that there is no pain when she leaves for work in the morning, but by the end of the day her entire leg feels sore. Patient is concerned this is sciatica. Patient denies any direct trauma to this area. Patient states that she was diagnosed with aspiration pneumonia 11 days ago at the [facility] walk-in clinic and treated with azithromycin and Augmentin. Patient took her last antibiotic yesterday but is concerned because she is still coughing and has a lots of phlegm. Patient reports that she had a gastric sleeve in the past, that prevents her from drinking adequate amounts of water. Related Data Home Medications Medication Instructions Recorded Confirmed telmisartan 80 mg tablet (Micardis) 80 mg PO DAILY 03/04/18 06/04/23 escitalopram oxalate 20 mg tablet 20 mg PO DAILY 05/16/23 06/04/23 estradiol 10 mcg vaginal tablet 10 mcg vaginal DAILY 05/16/23 06/04/23 (Yuvafem) Previous Rx's Medication Instructions Recorded pantoprazole 40 mg tablet,delayed 40 mg PO BID #180 tabs 06/04/23 release methocarbamol 500 mg tablet 500 mg PO TID PRN muscle pain #30 06/22/23 tabs Allergies Allergy/AdvReac Type Severity Reaction Status Date / Time No Known Drug Allergies Allergy Verified 06/22/23 12:16 Review of Systems <SOHAN Mayes - Last Filed: 06/22/23 13:44> Review of Systems Narrative: Narrative: See HPI. GENERAL: Denies chills, fatigue, fever, sweats. HEENT: Denies sinus pain, sore throat, difficulty swallowing, dizziness. Endorses left ear fullness. RESPIRATORY: Denies dyspnea, wheezing, sputum. Endorses cough and congestion. CARDIOVASCULAR: Denies chest pain, palpitations, edema. GASTROINTESTINAL: Denies nausea, vomiting, abdominal pain, diarrhea, constipation, loss of control of bowel or bladder. Endorses loose stools from the antibiotic usage. : Denies dysuria, frequency, incontinence, hematuria, urinary retention, flank pain. MSK: Denies weakness, joint pain, or bony pain. Endorses right leg pain. SKIN: Denies rash, skin lesions, or pruritis. NEUROLOGIC: Denies weakness, dizziness, headache, numbness, confusion. PSYCHIATRIC: No concerning psychosocial issues. Patient History <SOHAN Mayes - Last Filed: 06/22/23 13:44> Medical History Cyst in hand Back pain IUD (intrauterine device) in place Hypertension Depression Left inguinal hernia Surgical History S/P hernia surgery H/O gastric sleeve History of carpal tunnel release History of Family History Mother Gallstones Sister Gallstones Grandfather Cancer Grandmother Diabetes mellitus Uncle No problems noted. Social History marital status: household members: spouse and children lives independently: Yes occupational status: employed Smoking Status: Never smoker alcohol intake: never substance use type: does not use Smoking Status: Never smoker alcohol intake frequency: 0-2 drinks per day Substance Use Type: does not use Exam <SOHAN Mayes - Last Filed: 06/22/23 13:44> Narrative Exam Narrative: Exam Narrative: GENERAL: This is a well-nourished, well-developed patient, in no acute distress. HEAD: Atraumatic. Normocephalic. EYES: Pupils equal round and reactive. Extraocular motions intact. No scleral icterus, injection or drainage. ENT: Nose without bleeding, purulent drainage. Throat without erythema, tonsillar hypertrophy, positive postnasal exudate. Uvula midline. Airway patent. TMs and canals clear, with left ear effusion. No sinus tenderness. NECK: Trachea midline. No JVD or lymphadenopathy. Nontender. CARDIOVASCULAR: Regular rate and rhythm without murmurs, peripheral pulses intact, cap refill <2 sec. RESPIRATORY: Breath sounds with rhonchi in bilateral lower lobes. Positive wet cough. No increased respiratory effort. No accessory muscle use. GASTROINTESTINAL: Abdomen soft, non-tender, nondistended without guarding or rebound. No suprapubic pain. MSK: Moves all extremities. Normal range of motion, no clubbing or edema. Neurovascularly intact. NEURO: A&O x 3. SKIN: Warm, dry, no rashes or lesions noted. Initial Vital Signs Initial Vital Signs: Vital Signs Temperature 98.6 F 06/22/23 12:16 Pulse Rate 74 06/22/23 12:16 Respiratory Rate 16 06/22/23 12:16 Blood Pressure 146/99 H 06/22/23 12:16 Pulse Oximetry 98 06/22/23 12:16 Oxygen Delivery Method Room Air 06/22/23 12:16 Reviewed <Eva Heath DO - Last Filed: 06/23/23 07:49> Initial Vital Signs Initial Vital Signs: Vital Signs Temperature 98.6 F 06/22/23 12:16 Pulse Rate 74 06/22/23 12:16 Respiratory Rate 16 06/22/23 12:16 Blood Pressure 146/99 H 06/22/23 12:16 Pulse Oximetry 98 06/22/23 12:16 Oxygen Delivery Method Room Air 06/22/23 12:16 Course <SOHAN Mayes - Last Filed: 06/22/23 13:44> Orders Ordered: ED Orders 06/22/23 12:24 XR chest 2V Stat Vital Signs Vital signs: Vital Signs - 8 hr 06/22/23 12:16 Temperature 98.6 F Pulse Rate 74 Respiratory Rate 16 Blood Pressure 146/99 H Pulse Oximetry 98 Oxygen Delivery Method Room Air <Eva Heath DO - Last Filed: 06/23/23 07:49> Orders Ordered: ED Orders 06/22/23 12:24 XR chest 2V Stat Vital Signs Vital signs: Vital Signs - 8 hr 06/22/23 12:16 Temperature 98.6 F Pulse Rate 74 Respiratory Rate 16 Blood Pressure 146/99 H Pulse Oximetry 98 Oxygen Delivery Method Room Air MDM - Extremity (Nontraumatic) <SOHAN Mayes - Last Filed: 06/22/23 13:44> Differential Diagnosis Differential diagnosis: Likely other (Pneumonia, allergic rhinitis, bronchitis, sciatica, low back strain.) MDM Narrative Medical decision making narrative: 48-year-old female with cough, congestion right leg pain. Assessment of right leg was unremarkable and I suspect she has a mild right lower back strain. Recommended hot or cold compresses to the affected site, gentle range of motion stretching exercises, NSAIDs and a trial of a muscle relaxer. Chest x-ray was negative. Patient does have symptoms of allergic rhinitis. Recommended supportive care that included rest, increased oral hydration, gargling with warm salt water in the morning, daily Claritin or Zyrtec and Flonase nasal spray. Discussed plan of care, return precautions and worsening symptoms that would necessitate a visit to the emergency department with patient and , who verbalized understanding and was agreeable with course of action. Discharge Plan Departure Patient Disposition: Home Clinical Impression: Repetitive strain injury of lower back Qualifiers: Encounter type: initial encounter Qualified Code(s): S39.012A - Strain of muscle, fascia and tendon of lower back, initial encounter Allergic rhinitis Qualifiers: Allergic rhinitis trigger: unspecified Allergic rhinitis seasonality: unspecified Qualified Code(s): J30.9 - Allergic rhinitis, unspecified Instructions: DI for Allergic Rhinitis, DI for Back Strain or Sprain Activity Restrictions/Additional Instructions: *You have been diagnosed with right lower back strain. I suspect your right leg pain is from a mild right lower back strain. As we discussed, please apply hot or cold compresses to the affected site, gentle range of motion stretching exercises, ibuprofen 3 times a day with food and trial the muscle relaxer to see if this helps with your symptoms. Your chest x-ray was negative, but you do have symptoms of allergic rhinitis. Recommended supportive care that included rest, increased oral hydration, gargling with warm salt water in the morning, daily Claritin or Zyrtec and Flonase nasal spray. *What to do: *Please continue to take your regular medications as directed. [x ] New medication prescriptions sent to your pharmacy: [[facility]] [ ] New medication written as a paper prescription [ ] No new medications given *Please follow up with your primary care provider in 2-3 days, call for an appointment. Let them know you were seen in the Emergency Department and that we ask that you be seen in follow up. We will electronically transmit a record of today's note if your PCP is in our system *If you do not have a primary care provider please contact the [facility] Resource line at [phone]. They will ask some questions about your medical history and help get you set up with a doctor in the community. ? Return to ER if you should have any new, worsening or concerning symptoms, such as worsening pain, severe headache, confusion, chest pain, difficulty breathing, fever greater than 101 F, shaking chills, persistent vomiting to the point that you cannot drink fluids, or other new or worsening symptoms. Prescriptions: New methocarbamol 500 mg tablet 500 mg PO TID PRN (Reason: muscle pain) Qty: 30 0RF No Action pantoprazole 40 mg tablet,delayed release (DR/EC) 40 mg PO BID Qty: 180 0RF Rx Instructions: take 1 tablet by mouth twice daily escitalopram oxalate 20 mg tablet 20 mg PO DAILY estradiol [Yuvafem] 10 mcg tablet 10 mcg vaginal DAILY telmisartan [Micardis] 80 mg Tablet 80 mg PO DAILY Referrals: [facility]andi [Primary Care Provider] - Stand Alone Forms: Patient Portal/API ED Sign-out <Eva Heath DO - Last Filed: 06/23/23 07:49> Cosign ED Attending Isabelature Attestation: I was immediately available in the department for consultation. Documentation has been reviewed.
== END 2023-06-22 13:48 | disposition home or self-care (01) ==
PROVIDERS: Emergency Provider Registered Nurse
DX: S39.012A Strain of muscle, fascia and tendon of lower back, initial encounter (principal); J30.9 Allergic rhinitis, unspecified
CPT/HCPCS: 71046; 99283

== ENCOUNTER 2025-03-13 20:25 | Emergency (ER) | payer OTHER, SELFPAY ==
[2025-03-13] VITALS (10 sets, daily range): BP systolic 113–155; BP diastolic 71–83; PULSE 56–81; RESP 15–19; TEMP 36.6; O2SAT 98–100; BMI 27.6
--- NOTE | 2025-03-13 20:43 | DI.CT.S_ITS ---
PROCEDURE: CT ABDOMEN PELVIS W CON INDICATIONS: n/v/ abd pain TECHNIQUE: After the administration of intravenous contrast, axial sections acquired from the lung bases to the pubic symphysis. Coronal and sagittal reformats were performed. For radiation dose reduction, the following was used: automated exposure control, adjustment of mA and/or kV according to patient size. COMPARISON: None. FINDINGS: Image quality: Diagnostic. Lower Chest: No significant findings. ABDOMEN: Liver: No solid mass. Gallbladder: No radiopaque gallstones or wall thickening. Biliary ducts: No biliary dilation. Pancreas: No ductal dilation. Spleen: Size is within normal limits. Adrenal Glands: No adrenal nodules. Kidneys and Ureters: No hydronephrosis. No solid mass. No complex renal cystic lesion which requires follow up. Stomach and Bowel: Small hiatal hernia. Status post gastric bypass. Normal colonic caliber, without significant wall thickening. Normal appendix. Peritoneum: No abnormal intraperitoneal fluid. No free air. Ventral Wall: No significant ventral hernia. Abdominal Nodes: No retroperitoneal or mesenteric adenopathy by size criteria. Vessels: Aorta and inferior vena cava are normal in size. PELVIS: Pelvic Organs: Adnexal surgical clips. Bladder: No bladder wall thickening, accounting for underdistention. Pelvic Nodes: No enlarged lymph nodes. Miscellaneous: No inguinal hernias are seen. Bones: No aggressive osseous abnormality. Grade 1 anterolisthesis of L4 on L5 IMPRESSION: 1. No acute findings within the abdomen or pelvis to explain patient's symptoms. 2. Please see above for additional incidental findings. Dictated by: Deric Gaviria M.D. on 03/13/2025 at 21:53 Approved by: Deric Gaviria M.D. on 03/13/2025 at 21:57
[2025-03-13] MEDS: ONDANSETRON 4 MG/2 ML INJ IV (20:45)
[2025-03-13] MEDS: MORPHINE 4 MG/ML INJ IV (20:47)
[2025-03-13] MEDS: SODIUM CHLORIDE 0.9% 1,000 ML 1000 ML IV (20:47)
[2025-03-13 20:53] LABS: Add Manual Diff / Slide Review NO; Hematocrit 39.8 % (36-46); Hemoglobin 13.7 g/dL (12.0-16.0); Lymphocytes Absolute Auto 2500 /uL (1100-4500); Mean Corpuscular HGB Conc 34.4 % (30-36); Mean Corpuscular Hemoglobin 32.3 PG (26-34); Mean Corpuscular Volume 93.7 fL (80-100); Platelet Count 317 X10^3/uL (150-400)
[2025-03-13 21:06] LABS: Lactate (Lactic Acid) 2.0 mmol/L (0.7-2.1)
[2025-03-13 21:07] LABS: Alanine Aminotransferase 30 IU/L (<35); Albumin 4.7 g/dL (3.5-5.0); Albumin Globulin Ratio 1.4 (1.0-2.8); Alkaline Phosphatase 100 U/L (38-126); Blood Urea Nitrogen 13 mg/dL (7-17); Calcium 9.6 mg/dL (8.4-10.2); Carbon Dioxide 24 mmol/L (22-32); Chloride 106 mmol/L (98-107); Estimated Glomerular Filt Rate > 60 mL/min (>60); Globulin 3.4 g/dL (1.7-4.1); Glucose 113 mg/dL (70-99); HEMOLYSIS < 15 (0-50); Lipase 187 U/L (23-300); Magnesium 1.9 mg/dL (1.6-2.3); Potassium 4.2 mmol/L (3.4-5.1); Sodium 140 mmol/L (137-145); Total Protein 8.1 g/dL (6.3-8.2)
--- NOTE | 2025-03-13 21:32 | ED_ITS ---
HPI - Abdominal Pain General Chief Complaint: Abdominal Pain Stated Complaint: vomiting not eating/drinking Time Seen by Provider: 03/13/25 20:43 Source: patient Mode of arrival: Ambulatory History of Present Illness HPI narrative: Patient is a 50-year-old female with a past medical history of no significance comes into the ED from home for evaluation of abdominal pain nausea and vomiting, states that this all started yesterday symptoms have caused her to feel little lightheaded, has been dry heaving unable to tolerate anything p.o. secondary to these symptoms does have a history of gastric bypass, states that her pain diffuse, she denies any other symptoms at this time. Related Data Home Medications ?Medication ?Instructions ?Recorded ?Confirmed telmisartan 80 mg tablet (Micardis) 80 mg PO DAILY 11/1706/04/23 escitalopram oxalate 20 mg tablet 20 mg PO DAILY 05/1606/04/23 estradiol 10 mcg vaginal tablet 10 mcg vaginal DAILY 0 05/16/23 06/04/23 (Yuvafem) Previous Rx's ?Medication ?Instructions ?Recorded pantoprazole 40 mg tablet,delayed 40 mg PO BID #180 ta bs 06/04/23 release methocarbamol 500 mg tablet 500 mg PO TID PRN muscle p ain #30 06/22/23 tabs ondansetron 4 mg disintegrating 4 mg PO TID PRN nausea and 03/13/25 tablet vomiting 1 week #21 tabs Allergies Allergy/AdvReac Type Severity Reaction Status Date / Time No Known Drug Allergies Allergy Verified 03/13/25 20:31 Review of Systems Review of Systems Narrative: General: Denies fever, chills, weight loss HEENT: Denies headache, eye drainage, eye irritation, head trauma, sore throat, voice change Cardiovascular: Denies any chest pain, palpitations, tachycardia Respiratory: Denies any shortness of breath, cough, wheeze, stridor GI/: Positive abdominal pain, nausea, vomiting, denies diarrhea, bright red blood per rectum, melanotic stools, urinary frequency, urinary retention, dysuria, hematuria MSK: Denies any joint pain, muscle pains, swelling Skin: Denies any rashes, lesions, discoloration Neuro: Denies any headache, lightheadedness, dizziness, fainting, weakness Psych: Denies SI/HI Patient History Medical History Cyst in hand Back pain IUD (intrauterine device) in place Hypertension Depression Left inguinal hernia Surgical History S/P hernia surgery H/O gastric sleeve History of carpal tunnel release History of Family History Mother Gallstones Sister Gallstones Grandfather Cancer Grandmother Diabetes mellitus Uncle No problems noted. Social History marital status: household members: spouse and children lives independently: Yes occupational status: employed Smoking Status: Never smoker alcohol intake: never substance use type: does not use Smoking Status: Never smoker alcohol intake frequency: 0-2 drinks per day Exam Narrative Exam Narrative: General: Cooperative, well-developed, not in acute distress HEENT: Normocephalic, atraumatic, PERRLA, normal sclera, eyelids normal Neck: Active full range of motion, atraumatic Chest: Normal to inspection, negative crepitus, no overlying erythema ecchymosis Respiratory: Normal respiratory effort, not in acute respiratory distress, clear to auscultation bilaterally negative cough, wheeze, tachypnea, rhonchi, rales Cardiology: Regular rate rhythm negative gallop, murmur, rubs GI/: Patient dry heaving on exam, No tenderness to palpation, soft, non rigid, normal to inspection, exam deferred MSK: Full active range of motion in all 4 extremities, atraumatic, no tenderness to palpation of any bony prominences Skin: No rashes or lesions noted Neuro: Alert awake oriented x3, moves all 4 extremities spontaneously, cranial nerves intact, able to answer all questions appropriately follows commands appropriately Psych: Cooperative, negative suicidal or homicidal ideations Initial Vital Signs Initial Vital Signs: Vital Signs Temperature 97.8 F 03/13/25 20:31 Pulse Rate 81 03/13/25 20:31 Respiratory Rate 17 03/13/25 20:31 Blood Pressure 130/83 03/13/25 20:31 Pulse Oximetry 100 03/13/25 20:31 Oxygen Delivery Method Room Air 03/13/25 20:31 Course Orders Ordered: ED Orders 03/13/25 20:37 EKG-12 Lead Stat 03/13/25 20:43 CT abdomen pelvis w con Stat Complete Blood Count AUTO DIFF Stat Comprehensive Metabolic Panel Stat Lactate (Lactic Acid) Stat Lipase Stat MAG [Magnesium] Stat 03/13/25 22:24 Urinalysis and Microscopic Stat Ondansetron HCl (Ondansetron 4 Mg/2 Ml Inj) 4 mg IV NOW PRN PRN Reason: Nausea And Vomiting Last Admin: 03/13/25 20:45 Dose: 4 mg Documented By: ETHAN Ondansetron HCl (Ondansetron 4 Mg Odt) 4 mg PO NOW PRN PRN Reason: Nausea And Vomiting Discontinued Medications Diphenhydramine HCl (Diphenhydramine 50 Mg/Ml Vial) 25 mg IV NOW ONE Stop: 03/13/25 22:10 Last Admin: 03/13/25 22:29 Dose: 25 mg Documented By: ETHAN Sodium Chloride (Normal Saline 0.9%) 1,000 mls @ 1,000 mls/hr IV BOLUS ONE Stop: 03/13/25 21:42 Last Infusion: 03/13/25 22:29 Dose: Infused Documented By: Admin: 03/13/25 20:47 Dose: 1,000 mls/hr Documented By: ETHAN Metoclopramide HCl (Metoclopramide 10 Mg/2 Ml Inj) 10 mg IV NOW ONE Stop: 03/13/25 22:10 Last Admin: 03/13/25 22:30 Dose: 10 mg Documented By: ETHAN Morphine Sulfate (Morphine 4 Mg/Ml Inj) 4 mg IV NOW ONE Stop: 03/13/25 20:44 Last Admin: 03/13/25 20:47 Dose: 4 mg Documented By: ETHAN Vital Signs Vital signs: Vital Signs - 8 hr 03/13/25 20:31 03/13/25 20:51 03/13/25 20:52 Temperature 97.8 F Pulse Rate 81 66 Respiratory Rate 17 Blood Pressure 130/83 119/82 Pulse Oximetry 100 98 Oxygen Delivery Method Room Air 03/13/25 20:52 03/13/25 21:00 03/13/25 21:01 Temperature Pulse Rate 66 79 Respiratory Rate Blood Pressure 149/73 H Pulse Oximetry 99 98 Oxygen Delivery Method 03/13/25 21:01 03/13/25 21:35 03/13/25 21:38 Temperature Pulse Rate 56 L 58 L Respiratory Rate 15 Blood Pressure 155/76 H Pulse Oximetry 98 100 Oxygen Delivery Method 03/13/25 21:38 03/13/25 22:00 03/13/25 22:00 Temperature Pulse Rate 57 L 68 Respiratory Rate 17 Blood Pressure 142/81 H Pulse Oximetry 100 100 Oxygen Delivery Method MDM - Abdominal Pain Lab Data 03/13/25 20:43 03/13/25 20:43 Labs: Lab Results 03/13/25 03/13/25 Range/Units 20:43 22:24 WBC 9.3 (4.5-11.0) X10^3/uL RBC 4.24 (4.0-5.2) X10^6/uL Hgb 13.7 (12.0-16.0) g/dL Hct 39.8 (36-46) % MCV 93.7 (80-100) fL MCH 32.3 (26-34) PG MCHC 34.4 (30-36) % RDW 13.2 (11.6-14.8) % Plt Count 317 (150-400) X10^3/uL Neut % (Auto) 65.2 (50-75) % Lymph % (Auto) 27.5 (25-40) % [place] % (Auto) 4.8 (3-14) % Eos % (Auto) 2.0 (2-4) % Baso % (Auto) 0.5 (0-2) % Neut # (Auto) 6000 (5242-2462) /uL Lymph # (Auto) 2500 (6168-2091) /uL [place] # (Auto) 400 (0-900) /uL Eos # (Auto) 200 (0-450) /uL Baso # (Auto) 0 (0-100) /uL Sodium 140 (137-145) mmol/L Potassium 4.2 (3.4-5.1) mmol/L Chloride 106 (98-107) mmol/L Carbon Dioxide 24 (22-32) mmol/L BUN 13 (7-17) mg/dL Creatinine 0.63 (0.52-1.04) mg/dL Estimated GFR > 60 (>60) mL/min BUN/Creatinine Ratio 20.6 (6-22) Glucose 113 H (70-99) mg/dL Lactate 2.0 (0.7-2.1) mmol/L Calcium 9.6 (8.4-10.2) mg/dL Magnesium 1.9 (1.6-2.3) mg/dL Total Bilirubin 0.4 (0.2-1.3) mg/dL AST 38 H (14-36) IU/L ALT 30 (<35) IU/L Alkaline Phosphatase 100 (38-126) U/L Total Protein 8.1 (6.3-8.2) g/dL Albumin 4.7 (3.5-5.0) g/dL Globulin 3.4 (1.7-4.1) g/dL Albumin/Globulin Ratio 1.4 (1.0-2.8) Lipase 187 (23-300) U/L Urine Color Yellow Urine Appearance Clear Urine pH 7.0 (4.5-8.0) Ur Specific [place] 1.010 (1.000-1.035) Urine Protein Negative (Negative) Urine Glucose (UA) Negative (Negative) g/dL Urine Ketones 1+ H (NEGATIVE) Urine Occult Blood Trace-intact (Negative) Urine Nitrate Negative (Negative) Urine Bilirubin Negative (NEGATIVE) Urine Urobilinogen 0.2 (0.2) E.U./dL Ur Leukocyte Esterase Negative (NEGATIVE) Urine RBC 0-1/hpf (0-5/HPF) Urine WBC None seen (0-5/HPF) Ur Squamous Epith Cells 0-1 /hpf (0-5/HPF) Urine Bacteria None seen (None) Ur Culture Indicated? Cult not indicated Vol Urine Centrifuged 10ml (spun) Imaging Data CT scan - abdomen/pelvis: Radiologist's Impression: [place] [address] CT Scan Report Signed Patient: Stan Mcfadden MR#: [id number] : 1975 Acct:[id number] Age/Sex: 50 / F Date of Service: 03/13/25 Loc: ED Accession Number: [id number] Procedure: CT abdomen pelvis w con Ordering Provider: Norm Sierra D.O. PROCEDURE: CT ABDOMEN PELVIS W CON INDICATIONS: n/v/ abd pain TECHNIQUE: After the administration of intravenous contrast, axial sections acquired from the lung bases to the pubic symphysis. Coronal and sagittal reformats were performed. For radiation dose reduction, the following was used: automated exposure control, adjustment of mA and/or kV according to patient size. COMPARISON: None. FINDINGS: Image quality: Diagnostic. Lower Chest: No significant findings. ABDOMEN: Liver: No solid mass. Gallbladder: No radiopaque gallstones or wall thickening. Biliary ducts: No biliary dilation. Pancreas: No ductal dilation. Spleen: Size is within normal limits. Adrenal Glands: No adrenal nodules. Kidneys and Ureters: No hydronephrosis. No solid mass. No complex renal cystic lesion which requires follow up. Stomach and Bowel: Small hiatal hernia. Status post gastric bypass. Normal colonic caliber, without significant wall thickening. Normal appendix. Peritoneum: No abnormal intraperitoneal fluid. No free air. Ventral Wall: No significant ventral hernia. Abdominal Nodes: No retroperitoneal or mesenteric adenopathy by size criteria. Vessels: Aorta and inferior vena cava are normal in size. PELVIS: Pelvic Organs: Adnexal surgical clips. Bladder: No bladder wall thickening, accounting for underdistention. Pelvic Nodes: No enlarged lymph nodes. Miscellaneous: No inguinal hernias are seen. Bones: No aggressive osseous abnormality. Grade 1 anterolisthesis of L4 on L5 IMPRESSION: 1. No acute findings within the abdomen or pelvis to explain patient's symptoms. 2. Please see above for additional incidental findings. MDM Narrative Medical decision making narrative: Patient is a 50-year-old female with a past medical history of gastric bypass comes into the ED from home for evaluation of abdominal pain nausea vomiting ongoing persistent since yesterday, has decreased p.o. intake secondary to this, she denies any trauma or falls denies any other symptoms at this time. Patient had lab work imaging CT scan urinalysis performed here in the emergency department. Lab work unremarkable, CT scan without any acute findings, patient with resolved symptoms after administration of medication here. Urinalysis without any signs of urinary tract infection, we will instructed follow up with primary care and GI in outpatient setting she verbalized understanding of this and agrees to being discharged home with outpatient follow up 2205: Patient was re-evaluated stating she has improved symptoms after administration of fluid and Zofran but still complaining of nausea will order additional medications, informed her of negative CT scan and lab work and need for urinalysis, understands and agrees with continued monitoring Discharge Plan Departure Patient Disposition: Home Clinical Impression: Hernia, hiatal, Nausea & vomiting Activity Restrictions/Additional Instructions: Please follow up with your primary care doctor For the next 24 hours I would recommend decreased p.o. intake, do a bland diet and minimize the amount of fatty or fried foods, I would also take the Zofran every 8 hours regardless of whether or not you are nauseous, this is a avoid anything excessively spicy hot or cold Please read the discharge instructions sheet carefully and bring all papers to all doctor follow-up visits, as it may contain information that your doctor may want to see. Disease processes change and evolve, if your symptoms worsen or if you develop any new symptoms that are concerning to you please return for evaluation. Your evaluation today does not show any evidence of any life- threatening/serious illnesses requiring admission to the hospital or surgery. Please follow-up with your doctor for re-evaluation in approximately 1 day. Seek immediate medical attention for any worrisome symptoms. *If you do not have a primary care provider please contact the [facility] Resource line at [phone]. They will ask some questions about your medical history and help get you set up with a doctor in the community. Prescriptions: New ondansetron 4 mg tablet,disintegrating 4 mg PO TID PRN (Reason: nausea and vomiting) 7 Days Qty: 21 0RF No Action pantoprazole 40 mg tablet,delayed release (DR/EC) 40 mg PO BID Qty: 180 0RF Rx Instructions: take 1 tablet by mouth twice daily escitalopram oxalate 20 mg tablet 20 mg PO DAILY estradiol [Yuvafem] 10 mcg tablet 10 mcg vaginal DAILY methocarbamol 500 mg tablet 500 mg PO TID PRN (Reason: muscle pain) Qty: 30 0RF telmisartan [Micardis] 80 mg Tablet 80 mg PO DAILY Referrals: Provider,Candi CALLES [Primary Care Provider, Family Practice] Stand Alone Forms: Patient Portal/API
[2025-03-13] MEDS: diphenhydrAMINE 50 MG/ML VIAL 25 MG IV (22:29)
[2025-03-13] MEDS: METOCLOPRAMIDE 10 MG/2 ML INJ IV (22:30)
[2025-03-13 23:08] LABS: Appearance Urine UA CLEAR; Bilirubin Urine UA NEGATIVE (NEGATIVE); Color Urine UA YELLOW; Glucose Urine UA NEGATIVE (Negative); Ketones Urine UA 1+ (NEGATIVE); Leukocyte Esterase Urine UA NEGATIVE (NEGATIVE); Nitrite Urine UA NEGATIVE (Negative); Occult Blood Urine UA TRACE-INTACT (Negative); Protein Urine UA NEGATIVE (Negative); Specific Gravity Urine UA 1.010 (1.000-1.035); Urobilinogen Urine UA 0.2 E.U./dL (0.2)
[2025-03-13 23:09] LABS: pH Urine UA 7.0 (4.5-8.0)
[2025-03-13 23:18] LABS: Culture Indicated Urine Cult Not Indicated
[2025-03-14] VITALS: BP 111/68; PULSE 52; RESP 24; O2SAT 96
== END 2025-03-14 00:26 | disposition home or self-care (01) ==
PROVIDERS: Emergency Provider Student in an Organized Health Care Education/Training Program
DX: K44.9 Diaphragmatic hernia without obstruction or gangrene (principal); R11.2 Nausea with vomiting, unspecified; Z98.84 Bariatric surgery status
CPT/HCPCS: 36415; 74177; 80053; 81001; 83605; 83690; 83735; 85025; 96361; 96374; 96375; 99284; J1200; J2270; J2405; J2765; Q9967

== ENCOUNTER 2025-03-16 19:24 | Emergency (ER) | payer OTHER, SELFPAY ==
[2025-03-16 19:46] VITALS: BP 112/78; PULSE 74; RESP 16; TEMP 36.2; O2SAT 99; BMI 27.6
[2025-03-17 01:06] VITALS: PULSE 58; O2SAT 100
[2025-03-17 01:07] VITALS: BP 120/62; PULSE 58; O2SAT 100
--- NOTE | 2025-03-17 01:26 | ED.ABDPAIN ---
HPI - Abdominal Pain General Chief Complaint: Abdominal Pain Stated Complaint: cant eat/drink had gastric bypass f/u er visit03/13 Time Seen by Provider: 03/16/25 19:33 History of Present Illness HPI narrative: 50-year-old female history of gastric sleeve gastric bypass seen on 4 days ago for abdominal pain and nausea still having difficulty holding things down as she is still having dry heaving despite being on Zofran. She is passing gas and did have a bowel movement early. She has no urinary complaints, fever, chills, body ache, cough, or back pain. She feels dehydrated and hungry but at the same time she is nauseous and on still unable to eat. Other than what is stated 14 point review of systems negative. Related Data Home Medications ?Medication ?Instructions ?Recorded ?Confirmed telmisartan 80 mg tablet (Micardis) 80 mg PO DAILY 03/04/18 06/04/23 escitalopram oxalate 20 mg tablet 20 mg PO DAILY 05/16/23 06/04/23 estradiol 10 mcg vaginal tablet 10 mcg vaginal DAILY 05/16/23 06/04/23 (Yuvafem) Previous Rx's ?Medication ?Instructions ?Recorded pantoprazole 40 mg tablet,delayed 40 mg PO BID #180 tabs 06/04/23 release methocarbamol 500 mg tablet 500 mg PO TID PRN muscle pain #30 06/22/23 tabs ondansetron 4 mg disintegrating 4 mg PO TID PRN nausea and 03/13/25 tablet vomiting 1 week #21 tabs Allergies Allergy/AdvReac Type Severity Reaction Status Date / Time No Known Drug Allergies Allergy Verified 03/16/25 19:50 Review of Systems Review of Systems ROS Unobtainable: All systems reviewed & are unremarkable except as noted in HPI and below Patient History Medical History Cyst in hand Back pain IUD (intrauterine device) in place Hypertension Depression Left inguinal hernia Surgical History S/P hernia surgery H/O gastric sleeve History of carpal tunnel release History of Family History Mother Gallstones Sister Gallstones Grandfather Cancer Grandmother Diabetes mellitus Uncle No problems noted. Social History marital status: household members: spouse and children lives independently: Yes occupational status: employed alcohol intake: never substance use type: does not use Smoking Status: Never smoker alcohol intake frequency: 0-2 drinks per day Exam Narrative Exam Narrative: GENERAL: [50] year old patient appears stated age. Well-developed patient, in mild distress. HEAD: Atraumatic. Normocephalic. EYES: Pupils equal round and reactive. Extraocular motions intact. No scleral icterus. No injection or drainage. NECK: Trachea midline. Non tender CARDIOVASCULAR: Regular rate and rhythm without murmurs, gallops, or rubs. RESPIRATORY: Clear to auscultation. Breath sounds equal bilaterally. No wheezes, rales, or rhonchi. GASTROINTESTINAL: Abdomen soft, non-tender, nondistended. EXTREMITIES: No edema or joint tenderness. BACK: Nontender without deformity or crepitance. No flank tenderness. NEURO: AOx3. SKIN: No rash or erythema of visible areas Initial Vital Signs Initial Vital Signs: Vital Signs Temperature 97.2 F L 03/16/25 19:46 Pulse Rate 74 03/16/25 19:46 Respiratory Rate 16 03/16/25 19:46 Blood Pressure 112/78 03/16/25 19:46 Pulse Oximetry 99 03/16/25 19:46 Oxygen Delivery Method Room Air 03/16/25 19:46 Course Orders Ordered: Discontinued Medications Diphenhydramine HCl (Diphenhydramine 50 Mg/Ml Vial) 50 mg IV NOW ONE Stop: 03/17/25 01:35 Last Admin: 03/17/25 02:03 Dose: 50 mg Droperidol (Droperidol 2.5 Mg/Ml Vial) 2.5 mg IV NOW ONE Stop: 03/17/25 01:35 Last Admin: 03/17/25 02:04 Dose: 2.5 mg Lactated Ringer's (Lactated Ringers) 1,000 mls @ 1,000 mls/hr IV BOLUS ONE Stop: 03/17/25 02:33 Last Admin: 03/17/25 02:03 Dose: 1,000 mls/hr Vital Signs Vital signs: Vital Signs - 8 hr 03/16/25 19:46 03/17/25 01:06 03/17/25 01:07 Temperature 97.2 F L Pulse Rate 74 58 L 58 L Respiratory Rate 16 Blood Pressure 112/78 Pulse Oximetry 99 100 100 Oxygen Delivery Method Room Air Room Air 03/17/25 01:07 Temperature Pulse Rate Respiratory Rate Blood Pressure 120/62 Pulse Oximetry Oxygen Delivery Method MDM - Abdominal Pain Imaging Data CT scan - abdomen/pelvis: Radiologist's Impression: [address] [address] [address] Scan Report Signed Patient: Stan Mcfadden MR#: [id number] : 1975 Acct:[id number] Age/Sex: 50 / F Date of Service: 03/13/25 Loc: ED Accession Number: [id number] Procedure: CT abdomen pelvis w con Ordering Provider: Norm Sierra D.O. PROCEDURE: CT ABDOMEN PELVIS W CON INDICATIONS: n/v/ abd pain TECHNIQUE: After the administration of intravenous contrast, axial sections acquired from the lung bases to the pubic symphysis. Coronal and sagittal reformats were performed. For radiation dose reduction, the following was used: automated exposure control, adjustment of mA and/or kV according to patient size. COMPARISON: None. FINDINGS: Image quality: Diagnostic. Lower Chest: No significant findings. ABDOMEN: Liver: No solid mass. Gallbladder: No radiopaque gallstones or wall thickening. Biliary ducts: No biliary dilation. Pancreas: No ductal dilation. Spleen: Size is within normal limits. Adrenal Glands: No adrenal nodules. Kidneys and Ureters: No hydronephrosis. No solid mass. No complex renal cystic lesion which requires follow up. Stomach and Bowel: Small hiatal hernia. Status post gastric bypass. Normal colonic caliber, without significant wall thickening. Normal appendix. Peritoneum: No abnormal intraperitoneal fluid. No free air. Ventral Wall: No significant ventral hernia. Abdominal Nodes: No retroperitoneal or mesenteric adenopathy by size criteria. Vessels: Aorta and inferior vena cava are normal in size. PELVIS: Pelvic Organs: Adnexal surgical clips. Bladder: No bladder wall thickening, accounting for underdistention. Pelvic Nodes: No enlarged lymph nodes. Miscellaneous: No inguinal hernias are seen. Bones: No aggressive osseous abnormality. Grade 1 anterolisthesis of L4 on L5 IMPRESSION: 1. No acute findings within the abdomen or pelvis to explain patient's symptoms. 2. Please see above for additional incidental findings. MDM Narrative Medical decision making narrative: All lab work, vital signs, nurse triage note, medication list, previous ER visits, and all imaging study reviewed. CT abdomen and pelvis on 03/13 showed no acute findings within the abdomen or pelvis to explain the patient's symptoms. Patient given IV fluids droperidol Benadryl and Toradol here. I have asked the patient call her surgeon in the morning to get there take on her abdominal pain nausea given her history of gastric sleeve and gastric bypass to see if there needs to be any other intervention given how symptomatic she is. Differential diagnosis includes constipation, small-bowel obstruction, viral, dehydration, gastric bypass complication. Discharge Plan Departure Patient Disposition: Home Clinical Impression: Abdominal pain Qualifiers: Abdominal location: generalized Qualified Code(s): R10.84 - Generalized abdominal pain Nausea & vomiting Qualifiers: Vomiting type: unspecified Qualified Code(s): R11.2 - Nausea with vomiting, unspecified Instructions: DI for Abdominal Pain-Adult Activity Restrictions/Additional Instructions: Return with new or worsening. Follow up with surgeon who did gastric bypass for any recommendation. Keep hydrated. Prescriptions: No Action pantoprazole 40 mg tablet,delayed release (DR/EC) 40 mg PO BID Qty: 180 0RF Rx Instructions: take 1 tablet by mouth twice daily escitalopram oxalate 20 mg tablet 20 mg PO DAILY estradiol [Yuvafem] 10 mcg tablet 10 mcg vaginal DAILY methocarbamol 500 mg tablet 500 mg PO TID PRN (Reason: muscle pain) Qty: 30 0RF ondansetron 4 mg tablet,disintegrating 4 mg PO TID PRN (Reason: nausea and vomiting) 7 Days Qty: 21 0RF telmisartan [Micardis] 80 mg Tablet 80 mg PO DAILY Referrals: Provider,Candi CALLES [Primary Care Provider, Family Practice] Stand Alone Forms: Patient Portal/API
[2025-03-17 01:30] VITALS: PULSE 65; O2SAT 100
[2025-03-17 02:00] VITALS: BP 112/65; PULSE 54; O2SAT 99
[2025-03-17] MEDS: LACTATED RINGERS 1,000 ML 1000 ML IV (02:03)
[2025-03-17] MEDS: diphenhydrAMINE 50 MG/ML VIAL IV (02:03)
[2025-03-17] MEDS: droPERidol 2.5 MG/ML VIAL IV (02:04)
[2025-03-17 02:30] VITALS: BP 129/60; PULSE 66; O2SAT 100
[2025-03-17 03:00] VITALS: BP 132/63; PULSE 70; O2SAT 100
== END 2025-03-17 03:11 | disposition home or self-care (01) ==
PROVIDERS: Emergency Provider Family Medicine
DX: R11.2 Nausea with vomiting, unspecified (principal); R10.84 Generalized abdominal pain; Z98.84 Bariatric surgery status
CPT/HCPCS: 96361; 96374; 96375; 99283; 99284; J1200; J1790